=== PATIENT | male | born 1990 | race African-American/Black ===

== ENCOUNTER → 2019-07-06 | Outpatient (CLI) | payer MEDICAID ==
[~2019-07-06] MED LIST: ZOLPIDEM 5 MG TABLET. PO ONE
--- NOTE | 2019-07-08 14:23 | SLEEP ---
DATE OF STUDY: 07/06/2019 STUDY PERFORMED: Sleep study. ATTENDING PHYSICIAN: Chuy Castanon MD The patient is 28-year-old who weighs 235 pounds with a BMI of 34. The patient's [place] score was 16. The patient underwent split night study performed at [facility]. During the night study, the patient spent 447 minutes in bed and slept for 362 minutes with a sleep efficiency of 81%. Sleep latency was 13 minutes with a REM latency of 128 minutes. Sleep architecture showed normal stage 1 sleep, increased stage 2 sleep, normal slow wave and normal REM sleep. During the initial diagnostic portion of the study, the patient slept for 88 minutes. During that time, there was 1 obstructive apnea, no mixed or central apneas and 42 hypopneas. The patient's apnea hypopnea index was 29 per hour with absent REM and supine sleep. EKG monitoring revealed normal sinus rhythm, average heart rate was 79 beats per minute, no sustained arrhythmias observed. PLMS were seen at an index of 2 per hour and none caused EEG arousals. Nocturnal oximetry study revealed a mean oxygen saturation of 96% with the lowest of 83%. A 6% of time oxygen saturation remained between 80% and 89%. The patient met the criteria for CPAP initiation. It was started at 5 cm water and titrated up to 14 cm water. At the final pressure, the patient slept for 68 minutes. The patient had supine and REM sleep. The patient's AHI was reduced to 0 per hour and oxygen saturation remained above 95%. The patient used a full face large mask. IMPRESSION: 1. [id number] sleep apnea-hypopnea syndrome at an AHI of 29 per hour. Absence of supine and REM sleep can underestimate the severity of sleep apnea. REM sleep was not seen during the diagnostic portion. 2. Nocturnal hypoxia secondary to obstructive sleep apnea, but resolved with CPAP. No clinically significant periodic limb movements. RECOMMENDATIONS: 1. CPAP at 14 cm water completely eliminated the patient's sleep apnea and should be used on a nightly basis. 2. Follow up in 4-6 weeks to assess compliance with CPAP and to document clinical improvement. 3. Weight loss is strongly advised. 4. Avoid [employer] depressants. 5. Cautioned regarding driving until symptoms of sleep apnea resolve with the use of CPAP. FRANCISCO MEJIA MD DR: [email or web address]/kemal JOB#: [id number] / [id number] CHUY Mar MD
== END | disposition home or self-care (01) ==
LOC: RT 18:55
PROVIDERS: ATTEND Family Medicine
DX: G47.33 Obstructive sleep apnea (adult) (pediatric) (principal); G47.34 Idiopathic sleep related nonobstructive alveolar hypoventilation
CPT/HCPCS: 95810

== ENCOUNTER → 2020-04-27 | Outpatient (CLI) | payer MEDICAID ==
--- NOTE | 2020-04-27 16:16 | KCIC ---
EXAM: 1. CERVICAL SPINE 2-3V, 2. LUMBAR SPINE MIN 4V. HISTORY: Cervical radiculopathy, low back pain and lower extremity radiculopathy. COMPARISON: None. FINDINGS: There is mild reversal of the normal cervical lordosis. Degenerative disc disease is mild at C5-6. There is no prevertebral soft tissue swelling. No fractures are identified. Lumbar alignment is maintained. Vertebral body heights are maintained, and no fractures are identified. Intervertebral disc heights are maintained. IMPRESSION: 1. Mild degenerative disc disease at C5-6. Electronically signed by: Lacey Smith MD (04/27/2020 4:14 PM) [id number]
== END | disposition home or self-care (01) ==
LOC: KCIC 14:47
PROVIDERS: ATTEND Family Medicine
DX: M50.122 Cervical disc disorder at C5-C6 level with radiculopathy (principal); M40.50 Lordosis, unspecified, site unspecified; M54.5 Low back pain
CPT/HCPCS: 72040; 72110